=== PATIENT | male | born 1960 | race African-American/Black ===

== ENCOUNTER 2023-02-01 13:09 | Emergency (ER) | payer MEDICAID, OTHER ==
[~2023-02-01] VITALS: Ht 177.8 cm; Wt 73.0 kg
[2023-02-01 13:29] VITALS: O2SAT 98
[2023-02-01] MEDS ORDERED: LORAZEPAM 2MG/ML CPJ IM STA (13:34)
[2023-02-01] MEDS ORDERED: HALOPERIDOL LACTATE 5MG/ML VIAL IM STA (13:34)
[2023-02-01] MEDS ORDERED: DIPHENHYDRAMINE 50MG/ML VIAL IM STA (13:34)
[2023-02-01 14:13] LABS: BASOPHILS % 0.3 % (0.0-2.0); EOSINOPHILS % 0.6 % (0.0-5.0); HEMATOCRIT. 40.5 % (42.0-52.0); HEMOGLOBIN. 13.6 g/dL (14.0-18.0); LYMPHOCYTES % 15.8 % (20.0-50.0); MEAN CORPUSCULAR HEMOGLOBIN 32.1 pg (28.0-32.0); MEAN CORPUSCULAR HGB CONC 33.7 g/dL (31.0-37.0); MEAN CORPUSCULAR VOLUME 95.3 fL (80.0-94.0); MEAN PLATELET VOLUME 7.8 fl (7.4-10.4); MONOCYTES % 6.6 % (2.0-8.0); NEUTROPHILS % 76.7 % (40.0-76.0); PLATELET 237 x1000/uL (130-400); RED BLOOD CELL COUNT 4.25 mill/uL (4.7-6.1); RED CELL DISTRIBUTION WIDTH 13.7 % (11.6-14.6); WHITE BLOOD COUNT 9.9 x1000/uL (4.5-11.0)
[2023-02-01 14:30] LABS: CHLORIDE 103 mEq/L (98-107); INDEX HEMOLYSI 1 (1-3); INDEX ICTERIC 1 (1-4); INDEX LIPEMIC 1 (1-3); SODIUM 134 mEq/L (136-145)
[2023-02-01 14:55] LABS: ACETAMINOPHEN <2 ug/mL ug/mL (10-30); ALANINE AMINOTRANSFERASE 34 IU/L (13-61); ASPARTATE AMINOTRANSFERASE 49 IU/L (15-37); CALCIUM 9.5 mg/dL (8.5-10.1); CARBON DIOXIDE 19 mEq/L (21-32); CREATININE 0.9 mg/dL (0.6-1.3); GLUCOSE 104 mg/dL (70-105); PROTEIN TOTAL 8.4 g/dL (6.0-8.3); UREA NITROGEN BLOOD 26 mg/dL (7-21)
[2023-02-01 19:42] VITALS: BP 116/76; PULSE 90; RESP 18; TEMP 98.2
== END 2023-02-02 05:33 | disposition home or self-care (01) ==
LOC: ER 13:09
DX: R45.1 Restlessness and agitation (principal); E11.9 Type 2 diabetes mellitus without complications
CPT/HCPCS: 80053; 80307; 80329; 84443; 85025; 36415; 96372; 99291; J1200; J1630; J2060; Z7610

== ENCOUNTER 2024-07-04 02:39 | Emergency (ER) | payer SELFPAY ==
[~2024-07-04] VITALS: Ht 172.7 cm; Wt 76.0 kg
[2024-07-04 02:40] VITALS: BP 124/58; PULSE 86; RESP 20; TEMP 37.1; O2SAT 100
[2024-07-04 05:46] LABS: *AMPHETAMINES SCREEN URINE NEGATIVE (NEGATIVE)
[2024-07-04 05:47] LABS: *BARBITURATES SCREEN URINE NEGATIVE (NEGATIVE); *BENZODIAZEPINES SCREEN URINE NEGATIVE (NEGATIVE); *COCAINE SCREEN URINE NEGATIVE (NEGATIVE); CANNABINOID URINE SCREEN PRESUMPTIVE POSITIVE (NEGATIVE); ECSTASY MDMA SCREEN URINE NEGATIVE (NEGATIVE); METHADONE URINE SCREEN NEGATIVE (NEGATIVE); OPIATES URINE SCREEN NEGATIVE (NEGATIVE); PHENCYCLIDINE URINE SCREEN NEGATIVE (NEGATIVE)
== END 2024-07-04 12:11 | disposition home or self-care (01) ==
LOC: ER 02:39
DX: R45.850 Homicidal ideations (principal); E11.9 Type 2 diabetes mellitus without complications; F12.90 Cannabis use, unspecified, uncomplicated; Z59.00 Homelessness unspecified; Z20.822 Contact with and (suspected) exposure to COVID-19; Z79.899 Other long term (current) drug therapy
CPT/HCPCS: 80305; 87426; 99284